=== PATIENT | male | born 1945 | race African-American/Black ===

== ENCOUNTER 2021-04-13 06:01 | Inpatient (IN) ==
[~2021-04-13 06:01] MED LIST: VANCOMYCIN INJ 1,000 MG in SODIUM CHLORIDE 0.9% 250 ML IV ONE
[2021-04-13] MEDS ORDERED: propofoL 200 MG/20 ML VIAL IV ONE ×2 (06:25→08:03)
[2021-04-13] MEDS ORDERED: MIDAZOLAM 2 MG/2 ML VIAL ONE ×2 (06:25→07:30)
[2021-04-13] MEDS ORDERED: LIDOCAINE 2% 5 ML VIAL ONE (06:25)
[2021-04-13] MEDS ORDERED: BUPIVACAINE SPINAL 0.75% 2 ML AMP SPINAL ONE (06:25)
[2021-04-13] MEDS ORDERED: fentaNYL 100 MCG/2 ML VIAL ONE (06:25)
[2021-04-13] MEDS ORDERED: KETAMINE 500 MG/10 ML VIAL ONE (06:26)
[2021-04-13] MEDS ORDERED: DEXAMETHASONE 4 MG/1 ML VIAL ONE (06:35)
[2021-04-13] MEDS ORDERED: ROPIVACAINE 0.5% 30 ML VIAL ONE (06:36)
[2021-04-13] MEDS ORDERED: ceFAZolin 2,000 MG/50 ML DUPLEX IV ONE (06:43)
[2021-04-13 06:53] LABS: PT Patient Result 11.1 SECS (10.5-12.0)
[2021-04-13] MEDS ORDERED: BACITRACIN OINT 0.9 GM PACK TOP ONE (06:54)
[2021-04-13] MEDS ORDERED: LACTATED RINGERS 1,000 ML IV SCH (07:00)
[2021-04-13] MEDS ORDERED: PHENYLEPHRINE 1 MG/10 ML SYRINGE IV ONE (07:33)
[2021-04-13] MEDS ORDERED: TRANEXAMIC ACID 1,000 MG/10 ML VIAL ONE (07:39)
[2021-04-13] MEDS ORDERED: diphenhydrAMINE CAP 25 MG CAPSULE PO PRN (08:56)
[2021-04-13] MEDS ORDERED: ONDANSETRON 4 MG/2 ML VIAL IV PRN (08:56)
[2021-04-13] MEDS ORDERED: MORPHINE 2 MG/1 ML SYRINGE IV PRN (08:56)
[2021-04-13] MEDS ORDERED: KETOROLAC 30 MG/1 ML VIAL ONE (09:27)
[2021-04-13] MEDS: KETOROLAC 15 MG/1 ML VIAL IV SCH ×3 (09:29→20:30)
[2021-04-13 10:13] LABS: Bilirubin,Urine Negative (Negative); Blood, Urine Small mg/dL (Negative); Glucose,Urine (UA) Negative (Negative); Ketones,Urine 5 mg/dL (Negative); Mucus,Urine Occasional /LPF (Occasional); Nitrite,Urine Negative (Negative); Protein,Urine Negative; RBC,Urine 2 /HPF (0-4); Urine Appearance CLEAR (Clear); Urine Color Yellow (Yellow); Urine Specific Gravity 1.021 (1.001-1.035); Urine Urobilinogen < 2.0 EU/DL (<2.0)
[2021-04-13] MEDS: MORPHINE 2 MG/1 ML SYRINGE IV PRN ×2 (12:04→20:31)
[2021-04-13] MEDS: GABAPENTIN 300 MG CAPSULE PO SCH ×2 (16:20→20:31)
[2021-04-13] MEDS: FERROUS SULFATE 325 MG TABLET PO SCH ×2 (16:21→20:32)
[2021-04-13] MEDS: POTASSIUM CHLORIDE 20 MEQ TABLET PO SCH ×2 (16:21→20:31)
[2021-04-13] MEDS: ceFAZolin 2,000 MG/50 ML DUPLEX IV SCH ×2 (16:24→20:29)
[2021-04-13] MEDS: AMITRIPTYLINE 25 MG TABLET PO SCH (20:31)
[2021-04-13] MEDS: ZALEPLON 5 MG CAPSULE PO PRN (20:31)
[2021-04-13] MEDS: TERAZOSIN 1 MG CAPSULE PO SCH (20:32)
[2021-04-13] MEDS: DOCUSATE SODIUM 100 MG CAPSULE PO SCH (20:32)
[2021-04-13] MEDS: LACTATED RINGERS 1,000 ML IV SCH (20:37)
[2021-04-14] MEDS: LACTATED RINGERS 1,000 ML IV SCH (02:25)
[2021-04-14] MEDS: KETOROLAC 15 MG/1 ML VIAL IV SCH (02:26)
[2021-04-14 05:48] LABS: Basophils % 0.1 % (0.0-0.8); Eosinophils % 0.3 % (0.00-10.9); Hematocrit 33.5 VOL% (42.0-52.0); Hemoglobin 10.6 GM/DL (14.0-18.0); Immature Granulocytes % 0.4 %; Immature Granulocytes Absolute 0.03 #; Lymphocytes # 0.5 10*3/uL (1.4-4.0); Lymphocytes % 6.9 % (21.2-54.2); Mean Corpuscular HGB Conc 31.6 GM/DL (32-36); Mean Corpuscular Volume 96.3 FL (87-102); Mean Platelet Volume 12.1 FL (9.6-12.0); Monocytes % 10.9 % (1.7-12.7); Neutrophils % 81.4 % (38.7-73.9); Platelet Count 131 T/CUMM (130-400); Red Blood Count 3.48 MC/CUMM (3.8-5.5); White Blood Count 7.5 T/CUMM (4-12)
[2021-04-14] MEDS: FONDAPARINUX 2.5 MG/0.5 ML SYRINGE SUBCUT SCH (05:53)
[2021-04-14] MEDS: PANTOPRAZOLE 40 MG TABLET PO SCH (05:53)
[2021-04-14 06:34] LABS: Osmolality,Calculated 277.7 MOS/KG (273-304); Potassium 3.9 MMOL/L (3.5-5.1)
[2021-04-14] MEDS: MORPHINE 2 MG/1 ML SYRINGE IV PRN (08:25)
[2021-04-14] MEDS: GABAPENTIN 300 MG CAPSULE PO SCH ×3 (08:27→20:32)
[2021-04-14] MEDS: CHOLECALCIFEROL 1,000 UNIT TABLET PO SCH (08:27)
[2021-04-14] MEDS: POTASSIUM CHLORIDE 20 MEQ TABLET PO SCH ×2 (08:27→20:31)
[2021-04-14] MEDS: amLODIPine 10 MG TABLET PO SCH (08:27)
[2021-04-14] MEDS: lisinopriL 20 MG TABLET PO SCH (08:27)
[2021-04-14] MEDS: CELECOXIB 200 MG CAPSULE PO SCH (08:27)
[2021-04-14] MEDS: FERROUS SULFATE 325 MG TABLET PO SCH ×2 (08:27→20:32)
[2021-04-14] MEDS: DOCUSATE SODIUM 100 MG CAPSULE PO SCH ×2 (08:27→20:32)
[2021-04-14] MEDS: MAGNESIUM HYDROXIDE SUSP 30 ML UDCUP PO PRN (18:35)
[2021-04-14] MEDS: AMITRIPTYLINE 25 MG TABLET PO SCH (20:31)
[2021-04-14] MEDS: ZALEPLON 5 MG CAPSULE PO PRN (20:31)
[2021-04-14] MEDS: TERAZOSIN 1 MG CAPSULE PO SCH (20:33)
[2021-04-15] MEDS: FONDAPARINUX 2.5 MG/0.5 ML SYRINGE SUBCUT SCH (05:07)
[2021-04-15 05:28] LABS: Basophils % 0.2 % (0.0-0.8); Eosinophils # 0.4 10*3/uL (0.0-0.87); Eosinophils % 6.7 % (0.00-10.9); Hematocrit 31.8 VOL% (42.0-52.0); Immature Granulocytes % 0.5 %; Immature Granulocytes Absolute 0.03 #; Lymphocytes # 0.8 10*3/uL (1.4-4.0); Lymphocytes % 12.2 % (21.2-54.2); Mean Corpuscular HGB Conc 31.4 GM/DL (32-36); Mean Corpuscular Volume 97.5 FL (87-102); Mean Platelet Volume 11.9 FL (9.6-12.0); Monocytes % 12.4 % (1.7-12.7); Platelet Count 116 T/CUMM (130-400); Red Blood Count 3.26 MC/CUMM (3.8-5.5); Red Cell Distribution Width 13.1 % (9.3-17.3); White Blood Count 6.3 T/CUMM (4-12)
[2021-04-15] MEDS: PANTOPRAZOLE 40 MG TABLET PO SCH ×2 (06:27→08:44)
[2021-04-15] MEDS: CHOLECALCIFEROL 1,000 UNIT TABLET PO SCH (08:44)
[2021-04-15] MEDS: amLODIPine 10 MG TABLET PO SCH (08:44)
[2021-04-15] MEDS: DOCUSATE SODIUM 100 MG CAPSULE PO SCH ×2 (08:44→20:29)
[2021-04-15] MEDS: lisinopriL 20 MG TABLET PO SCH (08:44)
[2021-04-15] MEDS: CELECOXIB 200 MG CAPSULE PO SCH (08:44)
[2021-04-15] MEDS: POTASSIUM CHLORIDE 20 MEQ TABLET PO SCH ×2 (08:44→20:29)
[2021-04-15] MEDS: GABAPENTIN 300 MG CAPSULE PO SCH ×3 (08:45→20:29)
[2021-04-15] MEDS: FERROUS SULFATE 325 MG TABLET PO SCH ×2 (08:45→20:29)
[2021-04-15] MEDS: AMITRIPTYLINE 25 MG TABLET PO SCH (20:28)
[2021-04-15] MEDS: ZALEPLON 5 MG CAPSULE PO PRN (20:28)
[2021-04-15] MEDS: TERAZOSIN 1 MG CAPSULE PO SCH (20:28)
[2021-04-15] MEDS: MAGNESIUM HYDROXIDE SUSP 30 ML UDCUP PO PRN (20:29)
[2021-04-16] MEDS: FONDAPARINUX 2.5 MG/0.5 ML SYRINGE SUBCUT SCH (05:18)
[2021-04-16] MEDS: PANTOPRAZOLE 40 MG TABLET PO SCH (06:42)
[2021-04-16 07:07] LABS: Basophils % 0.2 % (0.0-0.8); Eosinophils # 0.4 10*3/uL (0.0-0.87); Hematocrit 29.7 VOL% (42.0-52.0); Hemoglobin 9.1 GM/DL (14.0-18.0); Immature Granulocytes % 0.3 %; Immature Granulocytes Absolute 0.02 #; Lymphocytes # 1.2 10*3/uL (1.4-4.0); Lymphocytes % 19.7 % (21.2-54.2); Mean Corpuscular HGB Conc 30.6 GM/DL (32-36); Mean Corpuscular Volume 98.3 FL (87-102); Mean Platelet Volume 12.4 FL (9.6-12.0); Monocytes % 6.8 % (1.7-12.7); Platelet Count 137 T/CUMM (130-400); Red Blood Count 3.02 MC/CUMM (3.8-5.5); Red Cell Distribution Width 13.3 % (9.3-17.3)
[2021-04-16] MEDS: GABAPENTIN 300 MG CAPSULE PO SCH ×2 (09:22→15:24)
[2021-04-16] MEDS: CELECOXIB 200 MG CAPSULE PO SCH (09:22)
[2021-04-16] MEDS: POTASSIUM CHLORIDE 20 MEQ TABLET PO SCH (09:22)
[2021-04-16] MEDS: FERROUS SULFATE 325 MG TABLET PO SCH (09:22)
[2021-04-16] MEDS: amLODIPine 10 MG TABLET PO SCH (09:22)
[2021-04-16] MEDS: CHOLECALCIFEROL 1,000 UNIT TABLET PO SCH (09:22)
[2021-04-16] MEDS: DOCUSATE SODIUM 100 MG CAPSULE PO SCH (09:22)
[2021-04-16] MEDS: lisinopriL 20 MG TABLET PO SCH (09:26)
[2021-04-16 12:10] VITALS: BP 129/59
== END 2021-04-16 15:45 | disposition swing bed (61) | DRG 470 ==
LOC: N.3E 06:01 → N.OR 06:01 → N.SDSINP 06:03 → EDSTATUS 07:30 → N.3E 10:13
PROVIDERS: ADMIT Orthopaedic Surgery; ATTEND Orthopaedic Surgery